=== PATIENT | male | born 1945 | race Caucasian/White ===

== ENCOUNTER → 2017-11-29 | Outpatient (CLI) | payer OTHER ==
[~2017-11-29] VITALS: Ht 185.4 cm; Wt 83.9 kg
[~2017-11-29] MED LIST: ALEVE220 MG PO; ASPIRIN81 M2 PO; CENTRUM SILVER1 EAC4 PO; ENABLEX15 MG PO; PRESERVISION A1 EAC2 PO; [UNRECOGNIZED DRUG - OTHER] PO
--- NOTE | ~2017-11-29 | P ---
[facility] [place] [address] PROCEDURE REPORT Name: LUIS EDUARDO VILLA Room #: REG [facility]#: [id number] Admission: 11/29/17 Attend Phys: Gabe Malcolm MD Discharge: Date of : 47 Report #: [id number] THIS REPORT FOR: //name// CC: CRUZ Malcolm BRIEF HISTORY: The patient is a 72-year-old male for average risk screening colonoscopy. PREOPERATIVE DIAGNOSIS: Average risk screening colonoscopy. POSTOPERATIVE DIAGNOSIS: Moderately severe sigmoid diverticulosis coli with few scattered proximal colon diverticula. MEDICATIONS: Deep sedation with propofol per anesthesia. SPECIMEN: None. ESTIMATED BLOOD LOSS: None. PROCEDURE: Colonoscopy to cecum and terminal ileum. FINDINGS: Prior to propofol sedation, procedure of colonoscopy discussed with the patient as well as potential risks and its complications. He indicates he understands and desires to proceed. DESCRIPTION OF PROCEDURE: With the patient in left lateral decubitus position, digital examination was completed which revealed no abnormalities. Subsequently, the Validus video colonoscope was introduced into the rectum and advanced under direct vision to the cecum. Done with minimal difficulty. The cecum was identified by the ileocecal valve and the appendiceal orifice. I was able to visualize the distal segment of terminal ileum, which was inspected and noted to be unremarkable. At that point, the scope showed on careful circumferential views obtained. Upon slow withdrawal of the scope, the prep was excellent. Mucosa was within normal limits, normal vascular pattern, normal light reflex. As we withdrew the scope, no neoplastic lesions were seen. No polyps were seen. A few small diverticula were seen in the proximal colon, but there is no evidence of diverticulitis. As we withdrew the scope, the colonic mucosa was normal and no other abnormalities were noted until we reached the sigmoid colon, at which point there was noted to be [id number] diverticular disease without endoscopic evidence of diverticulitis. Scope was withdrawn in the rectum. No abnormalities were seen. Upon retroflexion, no abnormalities were seen. Scope was withdrawn. The patient tolerated the procedure well. CONDITION OF THE PATIENT UPON DISCHARGE: Following procedure, the patient [address] [address] PROCEDURE REPORT Name: LUIS EDUARDO VILLA Megan Room #: REG [facility].#: [id number] Admission: 11/29/17 Attend Phys: Gabe Malcolm MD Discharge: Date of : 47 Report #: [id number] drowsy, aroused, conversant and will be discharged home when fully ambulatory. INSTRUCTIONS TO THE PATIENT AND FAMILY AT THE TIME OF DISCHARGE: No neoplastic lesions were seen. He is considered average risk for colonoscopy. Suggest followup colon exam in 10 years. Last colonoscopy was 10 years ago. Withdrawal time from the cecum was 12 minutes 30 seconds. <ELECTRONICALLY SIGNED> By: Gabe Malcolm MD 11/29/17 [id number] Gabe Malcolm MD /domi
== END | disposition home or self-care (01) ==
LOC: GI 08:35
DX: Z12.11 Encounter for screening for malignant neoplasm of colon (principal); K57.30 Diverticulosis of large intestine without perforation or abscess without bleeding; Z87.891 Personal history of nicotine dependence; Z98.890 Other specified postprocedural states; Z79.82 Long term (current) use of aspirin
CPT/HCPCS: 62110; 62900